=== PATIENT | male | born 1955 | race Caucasian/White ===

== ENCOUNTER 2017-01-06 17:17 | Emergency (ER) | payer BC ==
[2017-01-06] MEDS ORDERED: Diphtheria,Pertussis(Acell),Tetanus Vaccine 0.5 ML Syringe IM ONE (17:56)
[2017-01-06] MEDS ORDERED: Octyl 2-Cyanoacrylate 1 Tube TOP ONE (17:56)
--- NOTE | 2017-01-06 18:00 | EDM.PDOC ---
ED HPI GENERAL MEDICAL PROBLEM - General Chief Complaint: Bite:Animal, Insect Stated Complaint: CUT TO LEFT HAND Time Seen by Provider: 01/06/17 17:45 Source of Information: Reports: Patient History Limitations: Reports: No Limitations - History of Present Illness INITIAL COMMENTS - FREE TEXT/NARRATIVE: History of present illness: [61-year-old male comes in status post bite to hand by dog. Indicated he was petting and stroking the dog when it nipped at the medially palm or aspect of his hand slicing at the pad of his thumb.] Review of systems: As per history of present illness and below otherwise all systems reviewed and negative. Past medical history: As per history of present illness and as reviewed below otherwise noncontributory. Surgical history: As per history of present illness and as reviewed below otherwise noncontributory. Social history: No reported history of drug or alcohol abuse. Family history: As per history of present illness and as reviewed below otherwise noncontributory. Physical exam: HEENT: Atraumatic, normocephalic, pupils reactive, negative for conjunctival pallor or scleral icterus, mucous membranes moist, throat clear, neck supple, nontender, trachea midline. Lungs: Clear to auscultation, breath sounds equal bilaterally, chest nontender. Heart: S1S2, regular, negative for clicks, rubs, or JVD. Abdomen: Soft, nondistended, nontender. Negative for masses or hepatosplenomegaly. Negative for costovertebral tenderness. Pelvis: Stable nontender. Genitourinary: Deferred. Rectal: Deferred. Extremities: Left hand with laceration ending in a punctured area in the medially aspect of the thumb, negative for cords or calf pain. Neurovascular unremarkable. Neuro: Awake, alert, oriented. Cranial nerves II through XII unremarkable. Cerebellum unremarkable. Motor and sensory unremarkable throughout. Exam nonfocal. Area of approximately 2 cm at the base of the thumb with a superficial laceration with a small amount of fat exposed ending in a deep puncture. Diagnostics: [] Therapeutics: [Tetanus] Impression: [Laceration/puncture] Plan: [Follow-up with PCP/antibiotics] Definitive disposition and diagnosis as appropriate pending reevaluation and review of above. left palm Pain Score (Numeric/FACES): 5 - Related Data Allergies Allergy/AdvReac Type Severity Reaction Status Date / Time No Known Allergies Allergy Verified 01/06/17 17:39 Home Meds: Home Meds Amoxicillin/Potassium Clav [Augmentin 875-125 Tablet] 1 each PO BID #20 tablet 01/06/17 [Rx] Lisinopril [Prinivil] 20 mg PO DAILY 01/06/17 [History] Past Medical History Cardiovascular History: Reports: Hypertension Social & Family History - Family History Family Medical History: Noncontributory - Tobacco Use Smoking Status *Q: Never Smoker - Recreational Drug Use Recreational Drug Use: No ED ROS GENERAL - Review of Systems Review Of Systems: See Below ED EXAM, ANIMAL BITE - Physical Exam Exam: See Below (The history of present illness) Course - Vital Signs Last Recorded V/S: Last Vital Signs Temp 36.6 C 01/06/17 17:41 Pulse 68 01/06/17 17:41 Resp 16 01/06/17 17:41 BP 188/102 H 01/06/17 17:41 Pulse Ox 96 01/06/17 17:41 - Orders/Labs/Meds Orders: Active Orders 24 hr Category Date Time Status Vaccines to be Administered [RC] PER UNIT ROUTINE Care 01/06/17 17:56 Ordered Diphth,Pertuss(Acell),Tet Vac [Adacel] Med 01/06/17 17:56 Once 0.5 ml IM .ONCE ONE Octyl 2-Cyanoacrylate [Dermabond Advance] Med 01/06/17 17:56 Once 1 applic TOP ONETIME ONE Departure - Departure Time of Disposition: 17:58 Disposition: Home, Self-Care 01 Condition: Good Clinical Impression: Laceration and contusion of cerebral cortex - Discharge Information Prescriptions: Amoxicillin/Potassium Clav [Augmentin 875-125 Tablet] 1 each PO BID #20 tablet Forms: ED Department Discharge Additional Instructions: The following information is given to patients seen in the emergency department who are being discharged to home. This information is to outline your options for follow-up care. We provide all patients seen in our emergency department with a follow-up referral. The need for follow-up, as well as the timing and circumstances, are variable depending upon the specifics of your emergency department visit. If you don't have a primary care physician on staff, we will provide you with a referral. We always advise you to contact your personal physician following an emergency department visit to inform them of the circumstance of the visit and for follow-up with them and/or the need for any referrals to a consulting specialist. The emergency department will also refer you to a specialist when appropriate. This referral assures that you have the opportunity for follow-up care with a specialist. All of these measure are taken in an effort to provide you with optimal care, which includes your follow-up. Under all circumstances we always encourage you to contact your private physician who remains a resource for coordinating your care. When calling for follow-up care, please make the office aware that this follow-up is from your recent emergency room visit. If for any reason you are refused follow-up, please contact the [facility] Emergency Department at and asked to speak to the emergency department charge nurse. Take medication as directed Follow-up with PCP in 2-3 days Return to ED as needed as discussed - My Orders Last 24 Hours: My Active Orders 01/06/17 17:56 Vaccines to be Administered [RC] PER UNIT ROUTINE Diphth,Pertuss(Acell),Tet Vac [Adacel] 0.5 ml IM .ONCE ONE Octyl 2-Cyanoacrylate [Dermabond Advance] 1 applic TOP ONETIME ONE - Assessment/Plan Last 24 Hours: My Active Orders 01/06/17 17:56 Vaccines to be Administered [RC] PER UNIT ROUTINE Diphth,Pertuss(Acell),Tet Vac [Adacel] 0.5 ml IM .ONCE ONE Octyl 2-Cyanoacrylate [Dermabond Advance] 1 applic TOP ONETIME ONE
[2017-01-06 18:36] VITALS: BP 138/78
== END 2017-01-06 18:32 | disposition home or self-care (01) ==
LOC: MW.ED 17:17
DX: S06.330A Contusion and laceration of cerebrum, unspecified, without loss of consciousness, initial encounter (principal); I10 Essential (primary) hypertension; S61.012A Laceration without foreign body of left thumb without damage to nail, initial encounter; W54.0XXA Bitten by dog, initial encounter; Z23 Encounter for immunization
CPT/HCPCS: 90471; 90715; 99283; A9270; 99284